=== PATIENT | male | born 2000 | race Caucasian/White ===

== ENCOUNTER 2022-03-23 12:36 | Outpatient (CLI) | payer BC, SELFPAY ==
[2022-03-23 19:49] LABS: Albumin* 5.3 g/dL (3.3-5.0); Chloride* 102 mmol/L (96-114); Potassium* 4.5 mmol/L (3.6-5.1); Sodium* 140 mmol/L (135-149)
[2022-03-23 19:51] LABS: Cholesterol* 148 mg/dL (90-199); Creatinine* 0.9 mg/dL (0.5-1.5); Estimated Glomerular Filt Rate 125 ml/min
[2022-03-23 19:52] LABS: Alanine Aminotransferase* 20 U/L (4-50); Alkaline Phosphatase* 56 U/L (40-150); Aspartate Amino Transferase* 25 U/L (12-35); Bilirubin Total* 1.9 mg/dL (0.1-1.5); Blood Urea Nitrogen* 13 mg/dL (5-24); Carbon Dioxide* 29 mmol/L (20-32); Glucose* 76 mg/dL (60-115); Total Protein* 7.4 g/dL (6.0-8.3); Triglycerides* 39 mg/dL (40-149)
[2022-03-23 19:53] LABS: HDL Cholesterol* 62 mg/dL (>=40); LDL Cholesterol Calculated 78 mg/dL (<100)
[2022-03-26 02:59] LABS: Rapid Plasma Reagin (RPR) Non Reactive (Non Reactive)
== END 2022-03-23 12:37 | disposition home or self-care (01) ==
PROVIDERS: PCP Family Medicine; Visit Provider Family Medicine
DX: Z00.00 Encounter for general adult medical examination without abnormal findings (principal); F33.2 Major depressive disorder, recurrent severe without psychotic features; R48.0 Dyslexia and alexia; R53.83 Other fatigue; Z13.6 Encounter for screening for cardiovascular disorders; Z11.3 Encounter for screening for infections with a predominantly sexual mode of transmission
CPT/HCPCS: 80053; 80061; 84443; 86592

== ENCOUNTER 2022-03-29 15:19 | Outpatient (CLI) | payer BC, SELFPAY ==
[2022-03-29 22:38] LABS: Bilirubin Direct* 0.1 mg/dL (0.0-0.5); Bilirubin Total* 1.3 mg/dL (0.1-1.5)
[2022-03-31 23:41] LABS: Insulin, Random 16 uIU/mL
[2022-03-31 23:43] LABS: C-Peptide, Serum or Plasma 2.7 ng/mL (0.5-3.3)
[2022-04-01 02:59] LABS: Immunoglobulin A 127 mg/dL (68-408)
[2022-04-01 11:33] LABS: Beta-Hydroxybutyric Acid 0.8 mg/dL (0.0-3.0)
[2022-04-01 14:50] LABS: Tissue Transglutaminase IgA <2 U/mL (0-3)
[2022-04-02 19:49] LABS: Insulin Antibody <0.4 U/mL (0.0-0.4)
== END 2022-03-29 15:20 | disposition home or self-care (01) ==
PROVIDERS: PCP Family Medicine; Visit Provider Family Medicine
DX: R17 Unspecified jaundice (principal); K31.89 Other diseases of stomach and duodenum
CPT/HCPCS: 82010; 82247; 82248; 82310; 82784; 83525; 83970; 84681; 86337; 86364

== ENCOUNTER 2023-03-16 07:49 | Outpatient (CLI) | payer BC, SELFPAY | END 2023-03-16 07:50 | disposition home or self-care (01) | LOC: NFLDREF 03-20 06:03 | PROVIDERS: PCP Family Medicine; Referring Provider Family Medicine; Visit Provider Family Medicine | DX: R53.83 Other fatigue (principal) | CPT/HCPCS: 84403 ==